=== PATIENT | female | born 1990 | race Caucasian/White ===

== ENCOUNTER → 2022-11-18 14:54 | Outpatient (CLI) | payer OTHER, SELFPAY ==
--- NOTE | 2022-11-18 14:59 | DI.US.S_ITS ---
PROCEDURE: US OB <= 14 WEEKS FETUS INDICATIONS: Dating and viabilty OUTSIDE/PRIOR DATING DATA: Last menstrual period (LMP): 11/07/2021. LMP-based estimated date of delivery (PATRICK): 06/13/2023. First dating scan (date and location): 11/18/2022. Estimated date of delivery (PATRICK) from first dating scan: 06/22/2023. TECHNIQUE: Real-time scanning was performed of the fetus and maternal pelvic organs, with image documentation. COMPARISON: None. FINDINGS: Embryo: Single live intrauterine is identified with crown-rump length measuring 2.4 cm corresponding to 9 weeks 1 day. Heart rate: 145 beats per minute. Maternal organs: Ovaries are unremarkable. Cervix measures 4.3 cm. . IMPRESSION: Single live intrauterine with ultrasound gestational age today of 9 weeks 1 day. Recommend followup imaging at 20-22 weeks for dates and anatomy. We strive to produce accurate, complete, and clear reports of imaging services. To assist us in improving patient care, this report was composed using standard report templates and voice recognition software. Therefore, it may contain abnormal punctuation, insertions and/or omissions. Occasional wrong-word or sound-alike substitutions may occur. Though we review the report and make efforts to correct it, we do recommend that the report be read carefully in proper context to recognize any text inaccuracies. Dictated by: Jenna Ford M.D. on 11/18/2022 at 16:59 Approved by: Jenna Ford M.D. on 11/18/2022 at 17:00
== END ==
PROVIDERS: Referring Provider Obstetrics & Gynecology; Visit Provider Obstetrics & Gynecology
DX: Z34.81 Encounter for supervision of other normal pregnancy, first trimester (principal); Z3A.09 9 weeks gestation of pregnancy
CPT/HCPCS: 76801

== ENCOUNTER → 2022-11-25 08:33 | Outpatient (CLI) | payer OTHER, SELFPAY ==
[2022-11-25 10:14] LABS: Add Manual Diff / Slide Review NO; Basophils Absolute Auto 100 /uL (0-100); Basophils Percent Auto 0.7 % (0-2); Eosinophils Absolute Auto 200 /uL (0-450); Eosinophils Percent Auto 2.5 % (2-4); Hematocrit 39.2 % (36-46); Hemoglobin 13.6 g/dL (12.0-16.0); Lymphocytes Absolute Auto 2400 /uL (1100-4500); Lymphocytes Percent Auto 26.7 % (25-40); Mean Corpuscular HGB Conc 34.8 % (30-36); Mean Corpuscular Hemoglobin 28.9 PG (26-34); Mean Corpuscular Volume 83.1 fL (80-100); Monocytes Absolute Auto 800 /uL (0-900); Monocytes Percent Auto 9.4 % (3-14); Neutrophils Absolute Auto 5400 /uL (1500-7000); Neutrophils Percent Auto 60.7 % (50-75); Platelet Count 252 X10^3/uL (150-400); Red Blood Cell Count 4.72 X10^6/uL (4.0-5.2); Red Cell Distribution Width 13.7 % (11.6-14.8); White Blood Cell Count 8.8 X10^3/uL (4.5-11.0)
[2022-11-25 10:52] LABS: Appearance Urine UA CLEAR; Bilirubin Urine UA NEGATIVE (NEGATIVE); Color Urine UA YELLOW; Glucose Urine UA NEGATIVE (Negative); Ketones Urine UA NEGATIVE (NEGATIVE); Leukocyte Esterase Urine UA NEGATIVE (NEGATIVE); Nitrite Urine UA NEGATIVE (Negative); Occult Blood Urine UA NEGATIVE (Negative); Protein Urine UA NEGATIVE (Negative); Specific Gravity Urine UA <=1.005 (1.000-1.035); Urobilinogen Urine UA 0.2 E.U./dL (0.2)
[2022-11-25 10:57] LABS: pH Urine UA 5.5 (4.5-8.0)
[2022-11-25 16:31] LABS: Hepatitis B Surface Antigen NEGATIVE s/c (NEGATIVE)
[2022-11-25 16:45] LABS: HIV 1 & 2 Ab/Ag 4th Gen Combo NEGATIVE (NEGATIVE); Hep C Virus Ab w/Reflex Quant NEGATIVE s/c (NEGATIVE)
[2022-11-26 09:13] LABS: Varicella IgG Antibody >4000 index (Immune >165)
[2022-11-27 02:42] LABS: RPR Screen Non Reactive (Non Reactive)
== END ==
PROVIDERS: Referring Provider Obstetrics & Gynecology; Visit Provider Obstetrics & Gynecology
DX: Z34.81 Encounter for supervision of other normal pregnancy, first trimester (principal)
CPT/HCPCS: 36415; 80055; 81003; 86787; 86803; 86850; 86900; 86901; 87086; 87389

== ENCOUNTER → 2023-01-14 16:15 | Outpatient (CLI) | payer OTHER, SELFPAY ==
[2023-01-17 21:07] LABS: AFP Value 27.9 ng/mL (.); Gest Age on Col Date 17.3 weeks (.); Insulin Dep Diabetes No (.); OSBR Risk 1IN 10000 (.); Results Report (.); Test Results *Screen Negative* (.)
== END ==
PROVIDERS: Referring Provider Obstetrics & Gynecology; Visit Provider Obstetrics & Gynecology
DX: Z34.82 Encounter for supervision of other normal pregnancy, second trimester (principal); Z3A.17 17 weeks gestation of pregnancy
CPT/HCPCS: 36415; 82105

== ENCOUNTER → 2023-02-03 15:01 | Outpatient (CLI) | payer OTHER, SELFPAY ==
--- NOTE | 2023-02-03 15:02 | DI.US.S_ITS ---
PROCEDURE: US OB >= 14 WEEKS FETUS INDICATIONS: 20 Week Anatomy Scan OUTSIDE/PRIOR DATING DATA: Last menstrual period (LMP): 09/06/2022. LMP-based estimated date of delivery (PATRICK): 06/13/2023. First dating scan (date and location): 11/18/2022. Estimated date of delivery (PATRICK) from first dating scan: 06/22/2023. The calculations are made using the sonographic PATRICK of 06/22/2023. TECHNIQUE: Real-time scanning was performed of the fetus, with image documentation and biometric measurements. Endovaginal scanning: Not performed COMPARISON: None. FINDINGS: General: A single living intrauterine gestation is present. Presentation: Vertex. Placenta: Placental position is posterior , without previa. Lower placental edge 2 cm or less from internal cervical os qualifies as low lying placenta. Amniotic fluid index: 10.5 cm, normal range is 5-24 cm. Single deepest vertical pocket is 2.9 cm. heart rate: 139 beats per minute. Maternal cervical canal: 4.9 cm long. Normal lower limit is 2.5 cm. biometrics: Biparietal diameter: 4.8 centimeters, 20 weeks 4 days Head circumference: 17.2 centimeters, 19 weeks 6 days Abdominal circumference: 19.9 centimeters, 20 weeks Femur length: 3.4 centimeters, 20 weeks 4 days Clinically estimated gestational age: 20 weeks 1 day Composite gestational age from present scan: 20 weeks 2 days Estimated weight and percentile: 339 grams, 49th percentile Anatomic survey: Neuro: Ventricles are non-dilated at less than 10 mm. Cisterna magna is normal at 3-11 mm. Cerebellum is normal in size and morphology. Nuchal skin fold: Normal at less than 6 mm between 14-21 weeks gestational age. Face: Nose and lips, facial profile are normal. Spine: No evidence for spina bifida. Heart: 4-chambered heart is present, with normal ventricular outflow tracts. Diaphragm: Diaphragm is intact. Stomach: Left-sided stomach is present. Kidneys: No hydronephrosis. Normal is less than 5 mm in 2nd trimester, less than 7 mm in 3rd trimester. Cord: 3-vessel cord has orthotopic insertion. Bladder: Normal in size. Extremities: All 4 extremities identified. IMPRESSION: Single living intrauterine at 20 weeks 1 day, PATRICK of 06/22/2023. Normal anatomy survey. Estimated weight of 339 grams, 49th percentile. We strive to produce accurate, complete, and clear reports of imaging services. To assist us in improving patient care, this report was composed using standard report templates and voice recognition software. Therefore, it may contain abnormal punctuation, insertions and/or omissions. Occasional wrong-word or sound-alike substitutions may occur. Though we review the report and make efforts to correct it, we do recommend that the report be read carefully in proper context to recognize any text inaccuracies. Dictated by: Vahid Lim M.D. on 02/03/2023 at 15:52 Approved by: Vahid Lim M.D. on 02/03/2023 at 15:55
== END ==
PROVIDERS: Referring Provider Obstetrics & Gynecology; Visit Provider Obstetrics & Gynecology
DX: Z34.82 Encounter for supervision of other normal pregnancy, second trimester (principal); Z3A.20 20 weeks gestation of pregnancy
CPT/HCPCS: 76811

== ENCOUNTER → 2023-03-18 08:50 | Outpatient (CLI) | payer OTHER, SELFPAY ==
[2023-03-18 10:24] LABS: Hematocrit 35.3 % (36-46); Hemoglobin 12.3 g/dL (12.0-16.0)
[2023-03-18 10:59] LABS: GTT (PREG) 1 Hour PP 50gm Dose 67 mg/dL (76-139)
== END ==
PROVIDERS: Referring Provider Obstetrics & Gynecology; Visit Provider Obstetrics & Gynecology
DX: Z34.82 Encounter for supervision of other normal pregnancy, second trimester (principal); Z3A.26 26 weeks gestation of pregnancy
CPT/HCPCS: 36415; 82950; 85014; 85018

== ENCOUNTER → 2023-05-22 10:59 | Outpatient (CLI) | payer OTHER, SELFPAY ==
[2023-05-23 09:52] LABS: Strep Grp B PCR POS for Grp B Strep
== END ==
PROVIDERS: Visit Provider Obstetrics & Gynecology
DX: Z34.83 Encounter for supervision of other normal pregnancy, third trimester (principal); Z3A.35 35 weeks gestation of pregnancy
CPT/HCPCS: 87653

== ENCOUNTER 2023-05-27 10:16 | Outpatient (CLI) | payer OTHER, SELFPAY | END 2023-05-27 10:35 | disposition home or self-care (01) | LOC: LABOR 11:02 → OB 05-28 16:39 | PROVIDERS: Referring Provider Obstetrics & Gynecology; Visit Provider Obstetrics & Gynecology | DX: Z03.71 Encounter for suspected problem with amniotic cavity and membrane ruled out (principal); Z3A.36 36 weeks gestation of pregnancy | CPT/HCPCS: 59025; 84112; G0378; G0379 ==

== ENCOUNTER 2023-06-20 06:01 | Inpatient (IN) | payer OTHER, SELFPAY ==
[2023-06-20] VITALS (7 sets, daily range): BP systolic 96–116; BP diastolic 31–74; PULSE 57–84; RESP 9–17; TEMP 36.1–36.2; O2SAT 96
--- NOTE | 2023-06-20 06:55 | P.HPOB_ITS ---
OB HPI Date/Time Date of admission: 06/20/23 Date Patient Seen: 06/20/23 Time Patient Seen: 06:55 History of Present Condition Chief complaint: IUP, 39+5 wks EGA, prior CS x 1, GBS POS : 2 Para: 1 Estimated Date of Delivery: 06/22/23 Estimated Gestational Age (weeks): 39+5 Narrative: Georgiana See is a 33 year old admitted now at 39+ 5 weeks gestational age for repeat section. Her course has been uneventful with solid early dating and appropriate milestones throughout. GBS is positive. Indications Operative indications ( section): previous uterine surgery History of Present care: good care Dating criteria: LMP confirmed by 1st trimester US Ultrasounds: normal 1st trimester US and normal mid trimester US Obstetrical complications: none Medical complications: none Preadmission Labs Blood type: A (+) positive -: Antibody screen: negative, GBS status: positive, HBsAG: negative, HIV: negative and RPR/VDLR: negative -: Chlamydia screen: not detected and Gonorrhea screen: not detected -: Rubella: immune and Varicella: immune HCT: 35.3 HCAB: negative PAP: Normal Quad screen: Normal (AFP testing negative) Cell-free DNA: Low risk female infant 1 hr GTT: 67 Prior (ies) History: section x 1 Evaluation Evaluation Baseline heart rate: 145 Variability: Moderate (11-25) monitor accelerations: Present Monitor Decelerations: Absent [facility] Surgical History (Updated 12/17/22 @ 17:17 by Celestino Venegas MD) History of tonsillectomy (~2014) Previous section S/P ASA/PRK (advanced surface ablation photorefractive keratectomy) (~2009) Family History (Updated 10/29/22 @ 11:38 by Sarah Hayes RN) Father Heart disease S/P CABG x 3 Family/Other Heart disease Heart attack Family/Other Heart attack Heart valve replaced Maternal complication related to childbirth Grandmother Bladder cancer Celiac disease Grandmother Stroke Grandfather Heart attack Family/Other Lung cancer Maternal complication related to childbirth Family/Other Down syndrome Social History marital status: number of children: 1 household members: spouse and children lives independently: Yes housing: house pets and animals: Yes (1 dog) education level: college (brian's degree) 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[employer], 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) current occupational exposures/hazards: Yes special kristie needs: No travel history: recent (domestic only) seatbelt use: always helmet use: Yes water heater temp set < 120 deg: Yes working smoke detector in home: Yes fire extinguisher in home: Yes carbon monox detector in home: Yes firearms in home: Yes firearms unloaded and locked: Yes do you feel safe at home: Yes Smoking Status: Never smoker second hand exposure: No alcohol intake: former substance use type: does not use during the past year weight has: remained stable well-balanced diet: daily or most days daily servings fruits/ve or more times/day caffeine: Yes (Elpidio tea) Type(s) of exercise: walking and other (golf) frequency: daily duration: > 90 minutes/day Meds Home Medications and Allergies Home Medications Medication Instructions Recorded Confirmed Type choline 500 mg tablet mg PO 10/29/22 06/17/23 History omega-3 fatty acids 1,000 mg 1,000 mg PO DAILY 10/29/22 06/17/23 History capsule prenat.vits,tati,fnd-pbii-bzyms 1 tab PO DAILY 10/29/22 06/17/23 History albuterol sulfate 90 mcg/actuation 1 puff inhalation Q6H PRN 02/11/23 06/17/23 Rx aerosol inhaler shortness of breath or wheezing #8.5 grams Double Electric Breast Pump #1 ea 05/07/23 06/17/23 Rx Allergies Allergy/AdvReac Type Severity Reaction Status Date / Time No Known Drug Allergies Allergy Unverified 06/17/23 11:28 Review of Systems Review of Systems Narrative: Problem-specific ROS positives included in HPI OB Exam Vital signs Blood Pressure: 116/74 Pulse Rate: 84 HENMT Head: normal to inspection, normocephalic and atraumatic Eyes General: appearance normal, both eyes and all related structures Resp Effort & Inspection: normal respiratory effort and able to speak in complete sentences Auscultation: clear to auscultation bilaterally Cardio Rate: regular rate Rhythm: regular rhythm Heart Sounds: S1 normal, S2 normal and no murmurs Extremities Lower extremity: Yes normal to inspection GI Inspection: normal to inspection Palpation: Yes soft and Yes no hepatosplenomegaly Uterus Location (Fundal Height): 8 Presentation: vertex Estimated Weight (lbs): 8 Assessment and Plan Assessment and Plan Assessment and Plan narrative: ASSESSMENT 1. Intrauterine , 39+ 5 weeks gestational age 2. Prior section x1 3. GBS positive PLAN 1. Admit for repeat section 2. See admission orders 3. Patient counseled regarding alternatives, risks, benefits, and potential complications associated with repeat section. Full understanding of the above a written consent was executed, signed, and witnessed this date. Time Spent with Patient Total time spent with greater than 50% in coordination of care (as documented) at patient's floor/unit and/or counseling patient:: 15-24 minutes
--- NOTE | 2023-06-20 07:03 | PM.PREOP ---
Pre-operative Note COVID-19 COVID-19 status: Not tested Interval Note History & Physical reviewed/Exam performed by Physician: Yes Changes to H&P: No
--- NOTE | 2023-06-20 07:18 | SUR.OPER ---
Addendum entered by Eric Quesada R.N. 06/20/23 08:24: cord blood and placenta sent with OB nurse viable female delivered at 0824 Original Note: Supine on Padded OR bed, head on pillow, safety belt at thigh, arms secured on padded arm boards at <90 degrees abduction. Bump under right buttock. Legs uncrossed with pillow under knees, gel pad to heels, tape over blanket to lower legs.
[2023-06-20] MEDS: LACTATED RINGERS 1,000 ML 999 ML IV ×2 (07:20→10:23)
[2023-06-20] MEDS: CITRIC ACID/SODIUM CITRATE 15 ML SOLUTION 30 ML PO (07:20)
[2023-06-20 07:27] LABS: Add Manual Diff / Slide Review NO; Basophils Absolute Auto 100 /uL (0-100); Basophils Percent Auto 1.1 % (0-2); Eosinophils Absolute Auto 300 /uL (0-450); Eosinophils Percent Auto 2.8 % (2-4); Hematocrit 35.1 % (36-46); Hemoglobin 12.2 g/dL (12.0-16.0); Lymphocytes Absolute Auto 2200 /uL (1100-4500); Lymphocytes Percent Auto 23.2 % (25-40); Mean Corpuscular HGB Conc 34.7 % (30-36); Mean Corpuscular Hemoglobin 29.5 PG (26-34); Mean Corpuscular Volume 84.8 fL (80-100); Monocytes Absolute Auto 1000 /uL (0-900); Monocytes Percent Auto 10.9 % (3-14); Neutrophils Absolute Auto 5800 /uL (1500-7000); Platelet Count 204 X10^3/uL (150-400); Red Blood Cell Count 4.14 X10^6/uL (4.0-5.2); Red Cell Distribution Width 13.7 % (11.6-14.8); White Blood Cell Count 9.3 X10^3/uL (4.5-11.0)
--- NOTE | 2023-06-20 09:19 | P.OP_ITS ---
Operative Date/Time/Diagnoses Date of procedure: 06/20/23 Time of procedure: 08:05 Pre-op diagnosis: Intrauterine gestation, garza, 39+5 weeks EGA Previous section x 1 Post-op diagnosis: same Procedure & Clinicians Procedure: Repeat section, low transverse cervical Same procedure as scheduled: Yes Indications: Georgiana See is a 33 year old admitted now at 39+ 5 weeks gestational age for repeat section.? Her course has been uneventful with solid early dating and appropriate milestones throughout.? GBS is positive. Surgeon: Celestino Venegas Tool Filer Hand: [place] Reason for Tool Filer Hand: Tool Filer Hand required for the safe, effective, and timely completion of this surgery. Anesthesia Type: Spinal Operative Notes Findings: Viable female BW 3209 gms. (7 lbs. 1.2 oz.), Apgars 8/9, delivered from the vertex presentation. Normal gravid anatomy. Closure Type: primary Specimen(s): cord blood Intraoperative meds administered: Acetaminophen, Ketorolac and Pitocin Applied: Catheter Estimated Blood Loss (mL): 600 Blood products transfused: none Procedure in detail: With her informed written consent, the patient was taken to the operating room and placed in the supine position for a repeat section procedure, for the indication(s) above. The abdomen was prepped and draped in the usual manner for section and a pre-surgical timeout was taken per [facility] OR protocol. Once effective anesthesia was confirmed, a 13 cm transverse Pfannenstiel incision was made in the skin and taken down through the subcutaneous tissues to the deep fascia. The deep fascia was incised transversely, the rectus abdominal eyes bluntly and sharply, and the peritoneal cavity entered without difficulty. The lower uterine segment was visualized and the position/presentation palpated. A transverse incision at or above the vesicouterine reflection was made with Metzenbaum scissors and transverse hysterotomy performed near the midline. Amniotomy revealed clear fluid. The incision was extended bilaterally with digital traction and the was delivered easily from the vertex presentation. The was vigorous and cord clamping delayed for 60 seconds. The placenta was delivered intact using gentle cord traction and fundal massage.The uterine cavity was then cleared of any clot/debris first with a sloppy wet lap tape followed by a dry lap tape. Ring forceps were then applied to the angles and the midline of the incised MALAIKA. A primary closure of the uterus was then accomplished with #1 CCGS in a running interlocking stitch followed by a 2nd layer of #1 CCGS in a running interlocking imbricating stitch. No additional sutures was/were required to achieve complete hemostasis. Once pelvic hemostasis was assured, the bladder flap and anterior peritoneum were closed with a running 2-0 Vicryl suture and the fascia closed with #1 Vicryl in a running stitch initiated at both angles and tying separately near the midline. The subcutaneous tissues were reapproximated with 2-0 plain catgut suture using inverted interrupted stitches. The skin edges were then brought together with 4-0 Monocryl in a subcuticular closure and the incision was reinforced with 1 Steri-Strips. An appropriate compression dressing was applied and the patient transferred to PACU for recovery and subsequent transfer to the Center for recuperation. Complications: none Baby 1: Infant Gender: Female Presentation: vertex Position: Left Occiput Anterior Placental Delivery Description: Spontaneous Cord Vessel Description: 3 Vessels score (1 min): 8 score (5 min): 9 weight: 7 lb 1.194 oz Post-operative Condition: stable Disposition: PACU Aftercare: routine postop
[2023-06-20] MEDS: LACTATED RINGERS 1,000 ML 125 ML IV ×2 (11:00→12:56)
[2023-06-20] MEDS: KETOROLAC 30 MG/ML VIAL IV ×2 (11:29→18:07)
[2023-06-20] MEDS: ONDANSETRON 4 MG/2 ML INJ IV (12:55)
[2023-06-21] MEDS: KETOROLAC 30 MG/ML VIAL IV ×2 (00:10→05:42)
[2023-06-21 06:11] LABS: Add Manual Diff / Slide Review NO; Basophils Absolute Auto 100 /uL (0-100); Basophils Percent Auto 0.6 % (0-2); Eosinophils Absolute Auto 100 /uL (0-450); Eosinophils Percent Auto 0.8 % (2-4); Hematocrit 31.7 % (36-46); Hemoglobin 11.1 g/dL (12.0-16.0); Lymphocytes Absolute Auto 2400 /uL (1100-4500); Lymphocytes Percent Auto 14.8 % (25-40); Mean Corpuscular Hemoglobin 29.7 PG (26-34); Mean Corpuscular Volume 84.8 fL (80-100); Monocytes Absolute Auto 1800 /uL (0-900); Monocytes Percent Auto 11.3 % (3-14); Neutrophils Absolute Auto 11600 /uL (1500-7000); Neutrophils Percent Auto 72.5 % (50-75); Platelet Count 182 X10^3/uL (150-400); Red Blood Cell Count 3.74 X10^6/uL (4.0-5.2); Red Cell Distribution Width 13.8 % (11.6-14.8)
[2023-06-21] MEDS: LANOLIN OINT 7 GM 1 APPLIC TOP (09:12)
[2023-06-21] MEDS: DOCUSATE 100 MG CAPSULE PO (09:12)
[2023-06-21] MEDS: PRENATAL VIT,CALC/IRON/FOLIC 1 TABLET 1 TAB PO (09:12)
[2023-06-21 10:17] VITALS: BP 118/80; PULSE 91; RESP 16; TEMP 36.9
--- NOTE | 2023-06-21 11:17 | PM.OBDS.1 ---
Discharge Providers Provider Date of admission: 06/20/23 06:01 Discharge Date: 06/22/23 Primary care physician: Doctor Jose G MD Consults: 06/20/23 10:17 Consult to Talent Development Consultant Routine Comment: Discharge provider: Celestino Venegas MD Summary Hospital Course Date Patient Seen: 06/22/23 Time Patient Seen: 08:15 Diagnoses: Intrauterine gestation, 39+ 5 weeks gestational age, delivered by repeat section Hospital Course: Georgiana was admitted on the morning of 06/20/2023 and underwent an uneventful repeat section productive of a viable female infant, Apgars 8/9, weight 3209 g (7 lb 1.2 oz). Full details of the procedure are included in my operative note of that date. Following delivery both mother and baby have done extremely well with the mother experiencing prompt return of bowel and bladder function, she is ambulating independently, tolerating a regular diet, and her pain is well relieved with oral pain medications. She will be discharged at this time to home in an afebrile, normotensive condition after counseling regarding precautionary symptoms, limitations of activity, medications, and plans for follow-up which will be in 1 week. Medications at discharge will include resumption of all pre delivery medications. She will use tonf-aql-edtlrdr by Cisse and/or Tylenol as needed for pain relief and has made no decision regarding contraceptive use. Peripartum Data Infant Delivery Method: Section Laceration Description: None Episiotomy description: None Procedures: Spinal block anesthetic Repeat section, low transverse cervical complications: none 1: Gender: Female Disposition of : home Discharge Diagnosis (1) delivery, delivered, current hospitalization: Status: Acute Status at Discharge Cognitive/behavioral status at discharge: oriented Functional status at discharge: independent ambulation Overall status at discharge: patient is progressing back to baseline Time Spent with Patient Time attestation: Total time spent providing and/or coordinating discharge services: Time spent: Less than 30 minutes Objective Labs 06/21/23 06:00 Labs: Laboratory Results - last 24 hr 06/21/23 06:00 WBC 16.0 H D RBC 3.74 L Hgb 11.1 L Hct 31.7 L MCV 84.8 MCH 29.7 MCHC 35.0 RDW 13.8 Plt Count 182 Neut % (Auto) 72.5 Lymph % (Auto) 14.8 L [place] % (Auto) 11.3 Eos % (Auto) 0.8 L Baso % (Auto) 0.6 Neut # (Auto) 17012 H Lymph # (Auto) 2400 [place] # (Auto) 1800 H Eos # (Auto) 100 Baso # (Auto) 100 Exam Vital Signs (past 8 hours): Oxygen Delivery Method Room Air Const General: cooperative and comfortable Nutritional Appearance: average body habitus Orientation: alert and oriented x3 HENMT Head: normal to inspection, atraumatic and abrasion Ears: hearing grossly normal bilaterally Face and sinus: face symmetric Eyes General: appearance normal, both eyes and all related structures Conjunctivae: conjunctivae normal Sclera: sclerae normal EOM: EOM intact bilaterally Neck Neck: normal visual inspection Resp Effort & Inspection: normal respiratory effort and able to speak in complete sentences Auscultation: clear to auscultation bilaterally Cardio Rate: regular rate Rhythm: regular rhythm Heart Sounds: S1 normal, S2 normal and no murmurs GI Inspection: normal to inspection and incision (Incision intact, compression dressing removed, AquaCel applied) Palpation: soft, no hepatosplenomegaly and tender (Mild, diffuse postsurgical tenderness) External Female Exam: other (No significant bleeding noted) Extrem General: no calf tenderness Psych Appearance: grossly normal Mental Status: mental status grossly normal Speech and Movement: speech and movement normal Mood: congruent mood Affect: normal affect Attitude: cooperative Thought Process: normal Thought Content: normal Judgment: judgment good Discharge Plan Discharge Plan Patient Disposition: Home Provider Discharge Comment: Please review the written instructions you received when you were discharged from the hospital. Your follow-up appointment will be made for 1 week after your and I look forward to seeing you then. If however in the meanwhile you have any concerns, questions, or other issues, please contact me either through the office phone at [phone], or via the patient portal. Discharge orders & Medications Prescriptions: Continued prenat.vits,tati,khr-bnbe-hqxsm Tablet 1 tab PO DAILY No Action (DME) Double Electric Breast Pump See Rx Instructions .Route .MEDSUPPLY Qty: 1 0RF Rx Instructions: Pump and supplies Follow up/Referrals: Miscellaneous,DoctorMD [Primary Care Provider] - Celestino Venegas MD [Physician] - Discharge Health Status Multidrug resistant organism: No MDRO Diet/Activity/Treatments Diet: Diet as Tolerated Activity: As tolerated Other treatments: Zsex-mbe-hxcllru Tylenol and/or ibuprofen may be used for pain relief. Rgav-ckv-fkvaoix stool softeners and/or MiraLax may be used as needed for constipation. Skin/Wound/Dressing Care Report to your healthcare provider any signs of infection, such as:: chills, fever, increased pain, unusual drainage and unusual redness Dressing: Dressing will be removed at the time of your one-week postop visit Visit Report/Discharge Packet Instructions: DI for , DI for and Nipple Soreness Discharge Data Primary Care Provider: Miscellaneous,Doctor
--- NOTE | 2023-06-21 11:40 | PM.OBPN.1 ---
Subjective - OB Subjective Patient comments: no complaints [place] baby status: doing well feeding status: exclusively breast feeding Narrative: Patient is doing extremely well but prefers to stay until tomorrow morning to rest and recover Date Patient Seen: 06/21/23 Time Patient Seen: 11:41 Exam Vital Signs (past 8 hours): Oxygen Delivery Method Room Air Const General: cooperative and comfortable Nutritional Appearance: average body habitus Orientation: alert and oriented x3 HENMT Head: normal to inspection, atraumatic and abrasion Ears: hearing grossly normal bilaterally Face and sinus: face symmetric Eyes General: appearance normal, both eyes and all related structures Conjunctivae: conjunctivae normal Sclera: sclerae normal EOM: EOM intact bilaterally Neck Neck: normal visual inspection Resp Effort & Inspection: normal respiratory effort and able to speak in complete sentences Auscultation: clear to auscultation bilaterally Cardio Rate: regular rate Rhythm: regular rhythm Heart Sounds: S1 normal, S2 normal and no murmurs GI Inspection: normal to inspection and incision (Surgical dressing clean and dry) Palpation: soft, no hepatosplenomegaly and tender (Mild, diffuse postsurgical tenderness) External Female Exam: other (No significant bleeding noted) Extrem General: no calf tenderness Psych Appearance: grossly normal Mental Status: mental status grossly normal Speech and Movement: speech and movement normal Mood: congruent mood Affect: normal affect Attitude: cooperative Thought Process: normal Thought Content: normal Judgment: judgment good Objective Labs 06/21/23 06:00 Labs: Laboratory Results - last 24 hr 06/21/23 06:00 WBC 16.0 H D RBC 3.74 L Hgb 11.1 L Hct 31.7 L MCV 84.8 MCH 29.7 MCHC 35.0 RDW 13.8 Plt Count 182 Neut % (Auto) 72.5 Lymph % (Auto) 14.8 L [place] % (Auto) 11.3 Eos % (Auto) 0.8 L Baso % (Auto) 0.6 Neut # (Auto) 22027 H Lymph # (Auto) 2400 [place] # (Auto) 1800 H Eos # (Auto) 100 Baso # (Auto) 100 Assessment & Plan Assessment and Plan (1) delivery, delivered, current hospitalization: Status: Acute Time Spent With Patient Time: Total time spent is greater than 50% in coordination of care (as documented) at patient's floor/unit and/or counseling patient: Time with patient: 15-24 minutes
[2023-06-21 15:38] VITALS: TEMP 36.9
[2023-06-21] MEDS: IBUPROFEN 600 MG TABLET PO ×2 (15:38→23:15)
[2023-06-22] MEDS: IBUPROFEN 600 MG TABLET PO ×2 (06:11→11:51)
== END 2023-06-22 12:25 | disposition home or self-care (01) | DRG 788 ==
PROVIDERS: Admitting Provider Obstetrics & Gynecology; Referring Provider Obstetrics & Gynecology; Visit Provider Obstetrics & Gynecology
PROC: 10D00Z1 Extraction of Products of Conception, Low, Open Approach (ICD-10-PCS; CPT 59514; principal; 2023-06-20 07:45)
DX: O34.211 Maternal care for low transverse scar from previous cesarean delivery (principal); Z3A.39 39 weeks gestation of pregnancy; Z37.0 Single live birth; O99.824 Streptococcus B carrier state complicating childbirth
CPT/HCPCS: 36415; 59050; 59510; 59514; 85025; 86850; 86900; 86901; J0171; J1885; J2274; J2405; J3010